=== PATIENT | female | born 1955 ===

== ENCOUNTER 2019-03-24 11:19 | Outpatient (CLI) | payer OTHER ==
--- NOTE | 2019-03-24 12:20 | RAD ---
EXAM: CHEST TWO VIEWS: History: Cough, weight loss. History of a central thrombocytosis. FINDINGS: Heart size is normal. Minimal linear and parenchymal changes in both lower lung zones, having more of a chronic appearance. No confluent pneumonia, overt edema, or pleural effusion. IMPRESSION: Minimal lower lung zone bilateral linear parenchymal changes having more of a chronic appearance. No evidence of pneumonia or other acute process. POS: C
== END 2019-03-24 11:20 | disposition home or self-care (01) ==
LOC: BICRAD 11:19
PROVIDERS: ATTEND Internal Medicine Hematology & Oncology
DX: R05 Cough (principal); R63.4 Abnormal weight loss
CPT/HCPCS: 71046